=== PATIENT | male | born 1935 | race Caucasian/White ===

== ENCOUNTER 2016-07-24 06:45 | Inpatient (IN) | payer OTHER, MEDICARE ==
[~2016-07-24] VITALS: Ht 180.3 cm; Wt 83.6 kg
[2016-07-24] VITALS (9 sets, daily range): BP systolic 137–175; BP diastolic 63–79; PULSE 62–73; RESP 16–22; TEMP 97.2–98.1; O2SAT 22–100
[~2016-07-24 06:45] MED LIST: ALLO300 PO; ASPI81 PO; ATRO17AE INH; BUDE.25I NEB; CARV6.25 PO; CLON.3T TOP; CLOP75 PO; COZA100T PO; FISHOIL PO; HYDR-2768 PO; LEVO.05 PO; LORA-392 PO; NITR.3 SL; PERC10TA27 PO; SIMV20 PO; VENTAER INH
[2016-07-24] MEDS ORDERED: ALLO300T2 PO (07:06)
[2016-07-24] MEDS ORDERED: HYDR25TA5 PO (07:06)
[2016-07-24] MEDS ORDERED: LEVO.05 PO (07:06)
[2016-07-24] MEDS ORDERED: VENTAER INH (07:06)
[2016-07-24] MEDS ORDERED: ZOCO20TA PO (07:06)
[2016-07-24] MEDS ORDERED: LORA-373 PO (07:06)
[2016-07-24] MEDS ORDERED: PLAV75TA29 PO (07:06)
[2016-07-24] MEDS ORDERED: PERC5TAB12 PO (07:06)
[2016-07-24] MEDS ORDERED: LOSA100T PO (07:06)
[2016-07-24] MEDS ORDERED: CLON0.3D T-DERMAL (07:06)
[2016-07-24] MEDS ORDERED: IPRA17I INH (07:06)
[2016-07-24] MEDS ORDERED: NITR1SUB3 SL (07:06)
[2016-07-24] MEDS ORDERED: ASPI1TAB69 PO (07:06)
[2016-07-24] MEDS ORDERED: methylPREDNISolone SOD SUCC 125 MG/2 ML VIAL IVP ONE (07:15)
[2016-07-24] MEDS ORDERED: SODIUM CHLORIDE 0.9% FLUSH 5 ML FLUSH IVF PRN (07:15)
[2016-07-24 07:36] LABS: AUTOMATED NEUTROPHIL # 4.5 TH/MM3 (1.8-7.7); BASOPHIL % 0.4 % (0.0-2.0); EOSINOPHIL # 0.2 TH/MM3 (0-0.4); EOSINOPHIL % 3.2 % (0.0-4.0); HEMATOCRIT 37.1 % (39.0-51.0); HEMO FLAGS DIFF FINAL; LYMPH % 17.4 % (9.0-44.0); LYMPHOCYTE # 1.1 TH/MM3 (1.0-4.8); MEAN CELL VOLUME 99.2 FL (80.0-100.0); MEAN CORPUSCULAR HEMOGLOBIN 33.1 PG (27.0-34.0); MEAN CORPUSCULAR HGB CONC 33.3 % (32.0-36.0); MONO % 9.9 % (0.0-8.0); NEUT % 69.1 % (16.0-70.0); PLATELET COUNT 116 TH/MM3 (150-450); RED BLOOD COUNT 3.74 MIL/MM3 (4.50-5.90); RED CELL DISTRIBUTION WIDTH 14.7 % (11.6-17.2); WHITE BLOOD COUNT 6.6 TH/MM3 (4.0-11.0)
--- NOTE | 2016-07-24 07:43 | PD ---
HPI Chief Complaint: Respiratory Distress Time Seen by Provider: 07:14 Travel History International Travel<30 days: No Contact w/Intl Traveler<30days: No Traveled to known affect area: No History of Present Illness HPI 80-year-old male with history of prior smoking, COPD, bronchitis, CAD with CABG , pacer, presents to the ER today for 2 days history of intermittent chest pains which she states were fairly mild but pressure-like and worse with movements, dyspnea, shortness of breath, coughing up green phlegm. He states that he thought it was bronchitis but he did not come in until today. He denies any fevers, vomiting, abdominal pains, or any other symptoms. He states that his current chest pain is about a 3 out of 10, constant. Modifying Factors: None Associated Signs & Symptoms: Chest discomfort, coughing, dyspnea on exertion Risk Factors: Elderly, CABG, COPD PFSH Past Medical History Hx Anticoagulant Therapy: Yes (plavis, asa) Arthritis: Yes Asthma: Yes Autoimmune Disease: No Blood Disorders: No Anxiety: No Depression: No Heart Rhythm Problems: Yes Cancer: Yes (PROSTATE CANCER) Cardiac Catheterization: Yes Cardiovascular Problems: Yes High Cholesterol: Yes Chemotherapy: No Chest Pain: Yes Congestive Heart Failure: No COPD: Yes Cerebrovascular Accident: Yes Diabetes: No Diminished Hearing: No Gastrointestinal Disorders: Yes GERD: Yes Genitourinary: Yes Headaches: Yes Hypertension: Yes Immune Disorder: No Musculoskeletal: Yes Neurologic: Yes Psychiatric: No Reproductive: No Respiratory: Yes Myocardial Infarction: Yes Radiation Therapy: Yes Sickle Cell Disease: No Thyroid Disease: Yes Past Surgical History Abdominal Surgery: No AICD: No Arteriovenous Shunt: No Cardiac Surgery: Yes (PACEMAKER) Coronary Stent: Yes (X5) Ear Surgery: No Endocrine Surgery: No Eye Surgery: No Genitourinary Surgery: Yes (RENAL STENTS, and groin) Gynecologic Surgery: No Insulin Pump: No Neurologic Surgery: No Oral Surgery: No Pacemaker: Yes (BOSToN SCIENTIFIC) Thoracic Surgery: No Other Surgery: Yes (HEMMROIDECTOMY, LEFT GREAT TOE 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) Social History Alcohol Use: No Tobacco Use: No Substance Use: No Allergies-Medications (Allergen,Severity, Reaction): Coded Allergies: Fosamax (Verified Allergy, Severe, difficulty breathing, 07/24/16) Penicillin (Verified Allergy, Severe, HIVES, 07/24/16) Uncoded Allergies: PURPLE DYE (Adverse Reaction, Severe, HIVES, 03/26/09) Reported Meds & Prescriptions Reported Meds & Active Scripts Active Reported Atrovent HFA 12.9 GM Inh (Ipratropium Alexis) 17 Mcg/Act Aer 2 Puff INH Q6HR PRN Ventolin Hfa 18 GM Inh (Albuterol Sulfate) 90 Mcg/Act Aer 2 Puff INH Q4-6H PRN Percocet (Oxycodone-Acetaminophen) 5-325 mg Tab 2 Tab PO Q6H PRN Nitroglycerin SL (Nitroglycerin) 0.4 Mg Subl 0.4 Mg SL DIRECTED PRN ONE TABLET UNDER THE TONGUE NEEDED FOR CHEST PAIN, MAY REPEAT EVERY FIVE MINUTES FOR A TOTAL OF 3 DOSES OR CALL 911 IF NO RELIEF Synthroid (Levothyroxine Sodium) 50 Mcg Tab 50 Mcg PO DAILY Lorazepam 0.5 Mg Tab 0.5 Mg PO Q6H PRN Losartan (Losartan Potassium) 100 Mg Tab 75 Mg PO BID Plavix (Clopidogrel Bisulfate) 75 Mg Tab 75 Mg PO DAILY Hydrochlorothiazide 25 Mg Tab 25 Mg PO DAILY Clonidine 168 HR Patch (Clonidine HCl) 0.3 Mg/24 Hr Patch 1 Patch T-DERMAL Q7D Allopurinol 300 Mg Tab 150 Mg PO DAILY Aspirin 81 Mg Tabdr 81 Mg PO HS Zocor (Simvastatin) 20 Mg Tab 20 Mg PO HS Review of Systems Except as stated in HPI: all other systems reviewed are Neg Physical Exam Narrative GENERAL: Well-developed elderly white male patient in mild respiratory distress with talking full sentences. Awake, alert, oriented 3. SKIN: Warm and dry. HEAD: Atraumatic. Normocephalic. EYES: Pupils equal and round. No scleral icterus. No injection or drainage. ENT: No nasal bleeding or discharge. Mucous membranes pink and moist. NECK: Trachea midline. No JVD. CARDIOVASCULAR: Regular rate and rhythm. No murmur appreciated. RESPIRATORY: No accessory muscle use. Breath sounds equal and decreased throughout bilaterally. No wheezes, or crackles. GASTROINTESTINAL: Abdomen soft, non-tender, nondistended. Hepatic and splenic margins not palpable. MUSCULOSKELETAL: No obvious deformities. No clubbing. No cyanosis. No edema. NEUROLOGICAL: Awake and alert. No obvious cranial nerve deficits. Motor grossly within normal limits. Normal speech. PSYCHIATRIC: Appropriate mood and affect; insight and judgment normal. Data Data Last Documented VS Vital Signs Date Time Temp Pulse Resp B/P Pulse Ox O2 Delivery O2 Flow Rate FiO2 07/24/16 07:57 96 Nasal Cannula 2.00 07/24/16 06:53 69 22 07/24/16 06:48 97.8 163/74 Orders Electrocardiogram (07/24/16 ) Complete Blood Count With Diff (07/24/16 07:14) Comprehensive Metabolic Panel (07/24/16 07:14) B-Type Natriuretic Peptide (07/24/16 07:14) Ckmb (Isoenzyme) Profile (07/24/16 07:14) Troponin I (07/24/16 07:14) Influenzae A/B Antigen (07/24/16 07:14) Blood Culture (07/24/16 07:14) Iv Access Insert/Monitor (07/24/16 07:14) Ecg Monitoring (07/24/16 07:14) Oximetry (07/24/16 07:14) Oxygen Administration (07/24/16 07:14) Chest, Single Ap (07/24/16 07:14) Sodium Chloride 0.9% Flush (Ns Flush) (07/24/16 07:15) Methylprednisolone So Succ Inj (Solumedr (07/24/16 07:15) Albuterol-Ipratropium Neb (Duoneb Neb) (07/24/16 07:15) CKMB (07/24/16 06:50) CKMB% (07/24/16 06:50) Lactic Acid Sepsis Protocol (07/24/16 08:05) Ceftriaxone Inj (Rocephin Inj) (07/24/16 08:05) Azithromycin Inj (Zithromax Inj) (07/24/16 08:05) Labs Laboratory Tests Test 07/24/16 06:50 White Blood Count 6.6 TH/MM3 Red Blood Count 3.74 MIL/MM3 Hemoglobin 12.4 GM/DL Hematocrit 37.1 % Mean Corpuscular Volume 99.2 FL Mean Corpuscular Hemoglobin 33.1 PG Mean Corpuscular Hemoglobin 33.3 % Concent Red Cell Distribution Width 14.7 % Platelet Count 116 TH/MM3 Mean Platelet Volume 9.2 FL Neutrophils (%) (Auto) 69.1 % Lymphocytes (%) (Auto) 17.4 % Monocytes (%) (Auto) 9.9 % Eosinophils (%) (Auto) 3.2 % Basophils (%) (Auto) 0.4 % Neutrophils # (Auto) 4.5 TH/MM3 Lymphocytes # (Auto) 1.1 TH/MM3 Monocytes # (Auto) 0.6 TH/MM3 Eosinophils # (Auto) 0.2 TH/MM3 Basophils # (Auto) 0.0 TH/MM3 CBC Comment DIFF FINAL Differential Comment Sodium Level 141 MEQ/L Potassium Level 3.9 MEQ/L Chloride Level 106 MEQ/L Carbon Dioxide Level 24.7 MEQ/L Anion Gap 10 MEQ/L Blood Urea Nitrogen 15 MG/DL Creatinine 0.88 MG/DL Estimat Glomerular Filtration 83 ML/MIN Rate Random Glucose 116 MG/DL Calcium Level 8.6 MG/DL Total Bilirubin 1.0 MG/DL Aspartate Amino Transf 26 U/L (AST/SGOT) Alanine Aminotransferase 28 U/L (ALT/SGPT) Alkaline Phosphatase 147 U/L Total Creatine Kinase 279 U/L Creatine Kinase MB 2.8 NG/ML Troponin I 0.02 NG/ML B-Type Natriuretic Peptide 281 PG/ML Total Protein 7.3 GM/DL Albumin 3.6 GM/DL MDM Medical Decision Making Medical Screen Exam Complete: Yes Emergency Medical Condition: Yes Medical Record Reviewed: Yes Interpretation(s) EKG shows a paced rhythm at a rate of 70 bpm with no signs of acute ST changes. Laboratory Tests Test 07/24/16 06:50 Red Blood Count 3.74 MIL/MM3 (4.50-5.90) Hemoglobin 12.4 GM/DL (13.0-17.0) Hematocrit 37.1 % (39.0-51.0) Platelet Count 116 TH/MM3 (150-450) Monocytes (%) (Auto) 9.9 % (0.0-8.0) Estimat Glomerular Filtration 83 ML/MIN (>89) Rate Random Glucose 116 MG/DL (74-106) Alkaline Phosphatase 147 U/L (45-117) B-Type Natriuretic Peptide 281 PG/ML (0-100) Differential Diagnosis Coughing, intermittent chest discomfort, dyspneabronchitis versus COPD exacerbation versus CHF versus pneumonia versus dysrhythmias versus ACS Narrative Course Patient was initially given Solu-Medrol and nebulizers in the ER. Chest x-ray returns with basilar infiltrates worse on the right than the left concerning for underlying pneumonia. IV antibiotics were initiated after cultures are drawn. At this point, my plan would be to admit the patient for further treatment. Diagnosis Primary Impression: Pneumonia Admitting Information Admitting Physician Requests: it Carlos Navarrete MD Jul 24, 2016 07:43
[2016-07-24] MEDS: RESP: ALBUTEROL 2.5 MG/IPRATROPIUM 0.5 MG NEB (SCH) INH ×2 (07:53→07:54)
[2016-07-24 08:04] LABS: ALKALINE PHOSPHATASE 147 U/L (45-117); ALT (GPT) 28 U/L (12-78); ANION GAP 10 MEQ/L (5-15); AST (GOT) 26 U/L (15-37); BICARBONATE 24.7 MEQ/L (21.0-32.0); BLOOD UREA NITROGEN 15 MG/DL (7-18); CHLORIDE 106 MEQ/L (98-107); CREATINE KINASE 279 U/L (39-308); GLOMERULAR FILTRATION RATE 83 ML/MIN (>89); POTASSIUM 3.9 MEQ/L (3.5-5.1); SODIUM (NA) 141 MEQ/L (136-145)
[2016-07-24] MEDS ORDERED: cefTRIAXone INJ 2,000 MG in SODIUM CHLORIDE 0.9% INJ 100 ML IV STA (08:05)
[2016-07-24] MEDS ORDERED: AZITHROMYCIN INJ 500 MG in SODIUM CHLOR 0.9% 250 ML INJ 250 ML IV STA (08:05)
[2016-07-24 08:17] LABS: CKMB 2.8 NG/ML (0.5-3.6)
--- NOTE | 2016-07-24 08:32 | RADRPT ---
EXAM DATE/TIME: 07/24/2016 07:41 [facility] COMPARISON: CHEST SINGLE AP, July 22, 2015, 11:27. INDICATIONS : Short of breath. Chest pain. MEDICAL HISTORY : Chronic obstructive pulmonary disease. Cardiovascular disease. Carcinoma, prostatic. Hypertension . SURGICAL HISTORY : Pacemaker. Right hip repair. Cardiac cath. ENCOUNTER: Initial ACUITY: 2 days PAIN SCORE: 5/10 LOCATION: Bilateral chest FINDINGS: Bibasilar patchiness (right worse than left) is noted consistent with probable pneumonia. Clinical co rrelation is recommended. The heart is mildly enlarged. A right subclavian multi-lead pacemaker has its tips in the right atrium and right ventricle. No pneumothorax is noted. Surgical hardware is n oted within the cervical spine. CONCLUSION: 1. Bibasilar patchiness (right slightly worse than left) consistent with probable pneumonia. Clinic al correlation is recommended. 2. Cardiomegaly. Santos Clark MD on July 24, 2016 at 8:19 Board Certified Radiologist. This report was verified electronically.
[2016-07-24] MEDS ORDERED: SODIUM CHLORIDE 0.9% FLUSH 5 ML FLUSH FLUSH PRN (09:00)
[2016-07-24] MEDS ORDERED: NALOXONE HCL 0.4 MG/ML AMP IV PRN (09:00)
[2016-07-24] MEDS: ALLOPURINOL 300 MG TAB PO SCH (09:26)
[2016-07-24] MEDS: CLOPIDOGREL 75 MG TAB PO SCH (09:27)
[2016-07-24] MEDS: HYDROCHLOROTHIAZIDE 25 MG TAB PO SCH (09:27)
[2016-07-24] MEDS: LOSARTAN 50 MG TAB PO SCH ×2 (09:27→22:18)
[2016-07-24] MEDS: SODIUM CHLORIDE 0.9% FLUSH 5 ML FLUSH FLUSH SCH ×2 (09:28→22:19)
[2016-07-24] MEDS ORDERED: PILL SPLITTER OTHER PRN (09:30)
[2016-07-24] MEDS ORDERED: cloNIDine HCL 0.3 MG/24 HR PATCH T-DERMAL SCH (10:00)
[2016-07-24] MEDS ORDERED: REMOVE OLD CATAPRES (CLONIDINE) PATCH T-DERMAL SCH (10:00)
[2016-07-24] MEDS: ENOXAPARIN SODIUM 40 MG/0.4 ML SYRINGE SQ SCH (10:26)
--- NOTE | 2016-07-24 10:48 | HHI.HP ---
[facility] Admission Diagnosis pneumonia Diagnoses: Chief Complaint: SOB and chest pain Travel History International Travel<30 Days: No Contact w/Intl Traveler <30 Da: No Traveled to Known Affected Are: No History of Present Illness This is a 80-year-old male past medical history of coronary disease, OH, CVA who presented with shortness of breathing and chest pain. Patient stated that a few days ago he had shortness of breathing that occurred at rest. He stated that he checks his blood pressure in the systolic blood pressures in the 200s so he was concerned. With the shortness of breathing he stated that he had chest pain that was described as sharp: Across his chest and worsening with shortness of breathing. Patient stated that he took nitroglycerin which drastically helped his blood pressure but did not see any relief in terms of his chest pain. Patient stated after our his chest pain resolved but it seemed to worsen or recur with his cough. Patient also has a dry cough. He also stated that he felt chills and sweaty yesterday. Patient did not any fevers. Patient also stated that this chest pain was different from his previous MIs. At the moment patient stated that his symptoms have improved. Review of Systems Constitutional: DENIES: Diaphoretic episodes, Fatigue, Fever, Weight gain, Weight loss, Chills, Dizziness, Change in appetite, Night Sweats Endocrine: DENIES: Heat/cold intolerance, Polydipsia, Polyuria, Polyphagia Eyes: DENIES: Blurred vision, Diplopia, Eye inflammation, Eye pain, Vision loss , Photosensitivity, Double Vision Ears, nose, mouth, throat: DENIES: Tinnitus, Hearing loss, Vertigo, Nasal discharge, Oral lesions, Throat pain, Hoarseness, Ear Pain, Running Nose, Epistaxis, Sinus Pain, Toothache, Odynophagia Respiratory: COMPLAINS OF: Cough, Shortness of breath, DENIES: Apneas, Snoring , Wheezing, Hemoptysis, Sputum production Cardiovascular: COMPLAINS OF: Chest pain, DENIES: Palpitations, Syncope, Dyspnea on Exertion, PND, Lower Extremity Edema, Orthopnea, Claudication Gastrointestinal: DENIES: Abdominal pain, Black stools, Bloody stools, Constipation, Diarrhea, Nausea, Vomiting, Difficulty Swallowing, Anorexia Genitourinary: DENIES: Sexual dysfunction, Urinary frequency, Urinary incontinence, Urgency, Hematuria, Dysuria, Nocturia, Penile Discharge, Testicular Pain, Testicular Swelling Musculoskeletal: DENIES: Joint pain, Muscle aches, Stiffness, Joint Swelling, Back pain, Neck pain Integumentary: DENIES: Abnormal pigmentation, Nail changes, Pruritus, Rash Hematologic/lymphatic: DENIES: Bruising, Lymphadenopathy Immunologic/allergic: DENIES: Eczema, Urticaria Neurologic: DENIES: Abnormal gait, Headache, Localized weakness, Paresthesias, Seizures, Speech Problems, Tremor, Poor Balance Psychiatric: DENIES: Anxiety, Confusion, Mood changes, Depression, Hallucinations, Agitation, Suicidal Ideation, Homicidal Ideation, Delusions Past Family Social History Past Medical History Coronary disease, history of OH, 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, chronic pain due to OA, COPD Past Surgical History Pacemaker placement, tonsillectomy, adenectomy, neck surgeries Reported Medications Reported Meds & Active Scripts Active Reported Atrovent HFA 12.9 GM Inh (Ipratropium Warren) 17 Mcg/Act Aer 2 Puff INH Q6HR PRN Ventolin Hfa 18 GM Inh (Albuterol Sulfate) 90 Mcg/Act Aer 2 Puff INH Q4-6H PRN Percocet (Oxycodone-Acetaminophen) 5-325 mg Tab 2 Tab PO Q6H PRN Nitroglycerin SL (Nitroglycerin) 0.4 Mg Subl 0.4 Mg SL DIRECTED PRN ONE TABLET UNDER THE TONGUE NEEDED FOR CHEST PAIN, MAY REPEAT EVERY FIVE MINUTES FOR A TOTAL OF 3 DOSES OR CALL 911 IF NO RELIEF Synthroid (Levothyroxine Sodium) 50 Mcg Tab 50 Mcg PO DAILY Lorazepam 0.5 Mg Tab 0.5 Mg PO Q6H PRN Losartan (Losartan Potassium) 100 Mg Tab 75 Mg PO BID Plavix (Clopidogrel Bisulfate) 75 Mg Tab 75 Mg PO DAILY Hydrochlorothiazide 25 Mg Tab 25 Mg PO DAILY Clonidine 168 HR Patch (Clonidine HCl) 0.3 Mg/24 Hr Patch 1 Patch T-DERMAL Q7D Allopurinol 300 Mg Tab 150 Mg PO DAILY Aspirin 81 Mg Tabdr 81 Mg PO HS Zocor (Simvastatin) 20 Mg Tab 20 Mg PO HS Allergies: Coded Allergies: Fosamax (Verified Allergy, Severe, difficulty breathing, 07/24/16) Penicillin (Verified Allergy, Severe, HIVES, 07/24/16) Uncoded Allergies: PURPLE DYE (Adverse Reaction, Severe, HIVES, 03/26/09) Active Ordered Medications Current Medications IV Flush (NS Flush) 2 ml UNSCH PRN IVF FLUSH AFTER USING IV ACCESS; Start 07/24 at 07:15; Stop 07/24/16 at 09:21; Status DC Methylprednisolone Sodium Succinate (SoluMEDROL INJ) 125 mg ONCE ONCE IVP Last administered on 07/24/16 07:30; Start 07/24/16 at 07:15; Stop 07/24/16 at 07:16; Status DC Albuterol/ Ipratropium 1 ampule 1 ampule Q15M INH Last administered on 07:54; Start 07/24/16 at 07:15; Stop 07/24/16 at 07:31; Status DC Ceftriaxone Sodium 2000 mg/ Sodium Chloride 100 ml @ 200 mls/hr ONCE STAT IV Last administered on 07/24/16 09:26; Start 07/24/16 at 08:05; Stop 07/24/16 at 08:34; Status DC Azithromycin/ Sodium Chloride (Zithromax Inj/ NS 250 ml Inj) 250 ml @ 250 mls/ hr ONCE STAT IV Last administered on 07/24/16 10:26; Start 07/24/16 at 08:05 ; Stop 07/24/16 at 09:04; Status DC Allopurinol (Zyloprim) 150 mg DAILY PO Last administered on 07/24/16 09:26; Start 07/24/16 at 09:00 Aspirin (Ecotrin Ec) 81 mg HS PO ; Start 07/24/16 at 21:00 Clonidine (Catapres-Tts 0.3 Mg Patch.7d) 1 patch Q7D T-DERMAL ; Start 07/24/16 at 10:00 Clopidogrel Bisulfate (Plavix) 75 mg DAILY PO Last administered on 07/24/16 09 :27; Start 07/24/16 at 09:00 Hydrochlorothiazide (Hydrodiuril) 25 mg DAILY PO Last administered on 09:27; Start 07/24/16 at 09:00 Levothyroxine Sodium (Synthroid) 50 mcg DAILY@0600 PO ; Start 07/25/16 at 06:00 Lorazepam (Ativan) 0.5 mg Q6H PRN PO ANXIETY; Start 07/24/16 at 09:00 Losartan Potassium (Cozaar) 75 mg BID PO Last administered on 07/24/16 09:27; Start 07/24/16 at 09:00 Oxycodone/ Acetaminophen (Percocet 5-325 Mg) 2 tab Q6H PRN PO PAIN; Start at 09:00 Pravastatin Sodium 40 mg 40 mg HS PO ; Start 07/24/16 at 21:00 Ceftriaxone Sodium 1000 mg/ Sodium Chloride 100 ml @ 200 mls/hr Q24H IV ; Start 07/25/16 at 09:00 Azithromycin/ Sodium Chloride (Zithromax Inj/ NS 250 ml Inj) 250 ml @ 250 mls/ hr Q24H IV ; Start 07/25/16 at 08:00 IV Flush (NS Flush) 2 ml UNSCH PRN FLUSH FLUSH AFTER USING IV ACCESS; Start at 09:00 IV Flush (NS Flush) 2 ml BID FLUSH Last administered on 07/24/16 09:28; Start 07/24/16 at 09:00 Enoxaparin Sodium (Lovenox Inj) 40 mg Q24H SQ Last administered on 07/24/16 10 :26; Start 07/24/16 at 10:00 Naloxone HCl (Narcan Inj) 0.4 mg UNSCH PRN IV SEE LABEL COMMENTS; Start at 09:00 Miscellaneous Information 1 Q7D T-DERMAL ; Start 07/24/16 at 10:00 Miscellaneous (Pill Splitter) 1 ea UNSCH PRN OTHER SEE LABEL COMMENTS; Start at 09:30 Family History noncontributory Social History 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 Deny alcohol illicit drug use. He stated that he smoked for 60+ years about 3 packs per day but stopped smoking in 2001. Physical Exam Vital Signs Vital Signs Date Time Temp Pulse Resp B/P Pulse Ox O2 Delivery O2 Flow Rate FiO2 07/24/16 09:32 98 Nasal Cannula 2 07/24/16 09:25 69 20 175/76 98 Nasal Cannula 2 07/24/16 07:57 96 Nasal Cannula 2.00 07/24/16 06:53 69 22 95 Room Air 07/24/16 06:48 97.8 69 22 163/74 95 Physical Exam GENERAL: This is a well-nourished, well-developed patient, in no apparent distress. SKIN: No rashes, ecchymoses or lesions. Cool and dry. HEAD: Atraumatic. Normocephalic. No temporal or scalp tenderness. EYES: Pupils equal round and reactive. Extraocular motions intact. No scleral icterus. No injection or drainage. ENT: Nose without bleeding, purulent drainage or septal hematoma. Throat without erythema, tonsillar hypertrophy or exudate. Uvula midline. Airway patent. NECK: Trachea midline. No JVD or lymphadenopathy. Supple, nontender, no meningeal signs. CARDIOVASCULAR: Regular rate and rhythm without murmurs, gallops, or rubs. Able to reproduce chest pain with palpation to chest. RESPIRATORY: Clear to auscultation. Breath sounds equal bilaterally. No wheezes , rales, or rhonchi. GASTROINTESTINAL: Abdomen soft, non-tender, nondistended. No hepato-splenomegaly , or palpable masses. No guarding. MUSCULOSKELETAL: Extremities without clubbing, cyanosis, or edema. No joint tenderness, effusion, or edema noted. No calf tenderness. Negative Homans sign bilaterally. NEUROLOGICAL: Awake and alert. Cranial nerves II through XII intact. Motor and sensory grossly within normal limits. Five out of 5 muscle strength in all muscle groups. Normal speech. Laboratory Laboratory Tests Test 07/24/16 07/24/16 06:50 08:08 White Blood Count 6.6 Red Blood Count 3.74 Hemoglobin 12.4 Hematocrit 37.1 Mean Corpuscular Volume 99.2 Mean Corpuscular Hemoglobin 33.1 Mean Corpuscular Hemoglobin 33.3 Concent Red Cell Distribution Width 14.7 Platelet Count 116 Mean Platelet Volume 9.2 Neutrophils (%) (Auto) 69.1 Lymphocytes (%) (Auto) 17.4 Monocytes (%) (Auto) 9.9 Eosinophils (%) (Auto) 3.2 Basophils (%) (Auto) 0.4 Neutrophils # (Auto) 4.5 Lymphocytes # (Auto) 1.1 Monocytes # (Auto) 0.6 Eosinophils # (Auto) 0.2 Basophils # (Auto) 0.0 CBC Comment DIFF FINAL Differential Comment Sodium Level 141 Potassium Level 3.9 Chloride Level 106 Carbon Dioxide Level 24.7 Anion Gap 10 Blood Urea Nitrogen 15 Creatinine 0.88 Estimat Glomerular Filtration 83 Rate Random Glucose 116 Calcium Level 8.6 Total Bilirubin 1.0 Aspartate Amino Transf 26 (AST/SGOT) Alanine Aminotransferase 28 (ALT/SGPT) Alkaline Phosphatase 147 Total Creatine Kinase 279 Creatine Kinase MB 2.8 Troponin I 0.02 B-Type Natriuretic Peptide 281 Total Protein 7.3 Albumin 3.6 Lactic Acid Level 1.5 Date/Time Procedure Status Source Growth 07/24/16 07:24 Influenza Types A,B Antigen ([facility]) - Final Complete Nasal Washing NEGATIVE FOR FLU A AND B ANTIGEN.... 07/24/16 07:15 Aerobic Blood Culture Received Blood Peripheral Pending 07/24/16 07:15 Anaerobic Blood Culture Received Blood Peripheral Pending Result Diagram: 07/24/16 0650 07/24/16 0650 Assessment and Plan Assessment and Plan Dyspnea -Chest x-ray showed bibasilar opacity suggesting pneumonia right greater than left. -Due to symptoms will treat empirically for community acquired pneumonia with Rocephin and azithromycin. -Continue to supplement with oxygen as needed. -Continue to monitor clinically. Community-acquired pneumonia -See treatment as above. Atypical chest pain -Most likely secondary to pleurisy versus costochondritis since chest pain is reproducible. -Will give a burst of prednisone. -First troponin is negative so we will get 2 more troponins every 6 hours. We' ll also monitor over telemetry. Uncontrolled blood pressure -Asymptomatic. -Maybe secondary to pain. Will resume home medication. Continue to monitor and adjust accordingly. Coronary artery disease/COPD/history of CVA with no residuals/chronic pain -Home medication resumed. DVT prophylaxis -Lovenox Code Status full Discussed Condition With patient Physician Certification 2 Midnight Certification Type: Admission for Inpatient Services Order for Inpatient Services The services are ordered in accordance with Medicare regulations or non- Medicare payer requirements, as applicable. In the case of services not specified as inpatient-only, they are appropriately provided as inpatient services in accordance with the 2-midnight benchmark. Estimated LOS (days): 2 2 days is the estimated time the patient will need to remain in the hospital, assuming treatment plan goals are met and no additional complications. Post-Hospital Plan: Alisa Longo MD Jul 24, 2016 10:48
[2016-07-24] MEDS: predniSONE 50 MG TAB PO SCH (12:24)
[2016-07-24] MEDS: oxyCODONE/ACETAMINOPHEN 5 MG/325 MG TAB PO PRN (12:28)
--- NOTE | 2016-07-24 14:24 | EKG ---
Date Performed: 07/24/2016 Time Performed: 06:53:01 PTAGE: 80 years EKG: ELECTRONIC VENTRICULAR PACEMAKER ABNORMAL RHYTHM ECG NO PREVIOUS TRACING DOCTOR: Hank Patiño Interpretating Date/Time 07/24/2016 14:24:09
[2016-07-24] MEDS: PRAVASTATIN SOD 40 MG TAB PO SCH (22:17)
[2016-07-24] MEDS: ASPIRIN EC 81 MG TABEC PO SCH (22:18)
[2016-07-24] MEDS: LORazepam 0.5 MG TAB PO PRN (22:32)
[2016-07-25] VITALS (10 sets, daily range): BP systolic 115–150; BP diastolic 55–67; PULSE 69–81; RESP 16–18; TEMP 97.4–98.4; O2SAT 94–96
[2016-07-25] MEDS: LEVOTHYROXINE SODIUM 50 MCG TAB PO SCH (05:22)
[2016-07-25 06:51] LABS: HEMATOCRIT 33.7 % (39.0-51.0); MEAN CELL VOLUME 97.6 FL (80.0-100.0); MEAN CORPUSCULAR HEMOGLOBIN 32.6 PG (27.0-34.0); MEAN CORPUSCULAR HGB CONC 33.4 % (32.0-36.0); PLATELET COUNT 104 TH/MM3 (150-450); RED BLOOD COUNT 3.46 MIL/MM3 (4.50-5.90); RED CELL DISTRIBUTION WIDTH 14.9 % (11.6-17.2); REVIEW FLAG FINAL; WHITE BLOOD COUNT 7.6 TH/MM3 (4.0-11.0)
[2016-07-25 07:22] LABS: BICARBONATE 25.4 MEQ/L (21.0-32.0); POTASSIUM 4.1 MEQ/L (3.5-5.1)
[2016-07-25] MEDS: AZITHROMYCIN INJ 500 MG in SODIUM CHLOR 0.9% 250 ML INJ 250 ML IV SCH (08:51)
[2016-07-25] MEDS: CLOPIDOGREL 75 MG TAB PO SCH (08:53)
[2016-07-25] MEDS: SODIUM CHLORIDE 0.9% FLUSH 5 ML FLUSH FLUSH SCH ×2 (08:53→22:46)
[2016-07-25] MEDS: HYDROCHLOROTHIAZIDE 25 MG TAB PO SCH (08:53)
[2016-07-25] MEDS: predniSONE 50 MG TAB PO SCH (08:53)
[2016-07-25] MEDS: ALLOPURINOL 300 MG TAB PO SCH (08:54)
[2016-07-25] MEDS: oxyCODONE/ACETAMINOPHEN 5 MG/325 MG TAB PO PRN (08:55)
[2016-07-25] MEDS: cefTRIAXone INJ 1,000 MG in SODIUM CHLORIDE 0.9% INJ 100 ML IV SCH (10:51)
[2016-07-25] MEDS: ENOXAPARIN SODIUM 40 MG/0.4 ML SYRINGE SQ SCH (10:53)
--- NOTE | 2016-07-25 10:53 | HHI.PR ---
Subjective Remarks f/u for pleuritic CP and dyspnea, patient stated breathing has improved and now he is coughing up mucus. he stated that he is constipated now and wants laxative. patient also stated he is walking down the hallway. patient stated no more chest pain since he was given the steroid. Objective Vitals Vital Signs Date Time Temp Pulse Resp B/P Pulse Ox O2 Delivery O2 Flow Rate FiO2 07/25/16 08:00 98.4 70 16 115/55 95 07/25/16 04:30 97.8 70 18 150/67 94 07/25/16 00:23 94 Nasal Cannula 2.00 07/25/16 00:00 97.4 70 18 145/67 96 07/24/16 20:30 69 07/24/16 20:00 98.1 70 18 144/63 94 07/24/16 16:00 97.9 73 16 137/79 93 07/24/16 12:20 62 07/24/16 12:00 97.2 70 16 152/73 96 07/24/16 11:00 69 16 148/65 100 Nasal Cannula 2 I/O 07/24/16 07/24/16 07/24/16 07/25/16 07/25/16 07/25/16 07:00 15:00 23:00 07:00 15:00 23:00 Intake Total 260 ml 480 ml 60 ml Balance 260 ml 480 ml 60 ml Intake Oral 260 ml 480 ml IV Total 60 ml # Voids 1 2 2 Result Diagram: 07/25/1662407/25/16 0625 Objective Remarks GENERAL: in NAD CARDIOVASCULAR: Regular rate and rhythm without murmurs, gallops, or rubs. no TTP when palpating chest. RESPIRATORY:+ rhonchi. No accessory muscle use. GASTROINTESTINAL: Abdomen soft, non-tender, nondistended. MUSCULOSKELETAL: No cyanosis, or edema. BACK: Nontender without obvious deformity. No CVA tenderness. Medications and IVs Current Medications IV Flush (NS Flush) 2 ml UNSCH PRN IVF FLUSH AFTER USING IV ACCESS; Start 07/24 at 07:15; Stop 07/24/16 at 09:21; Status DC Methylprednisolone Sodium Succinate (SoluMEDROL INJ) 125 mg ONCE ONCE IVP Last administered on 07/24/16t 07:30; Start 07/24/16 at 07:15; Stop 07/24/16 at 07:16; Status DC Albuterol/ Ipratropium 1 ampule 1 ampule Q15M INH Last administered on 07:54; Start 07/24/16 at 07:15; Stop 07/24/16 at 07:31; Status DC Ceftriaxone Sodium 2000 mg/ Sodium Chloride 100 ml @ 200 mls/hr ONCE STAT IV Last administered on 07/24/16 09:26; Start 07/24/16 at 08:05; Stop 07/24/16 at 08:34; Status DC Azithromycin/ Sodium Chloride (Zithromax Inj/ NS 250 ml Inj) 250 ml @ 250 mls/ hr ONCE STAT IV Last administered on 07/24/16 10:26; Start 07/24/16 at 08:05 ; Stop 07/24/16 at 09:04; Status DC Allopurinol (Zyloprim) 150 mg DAILY PO Last administered on 07/25/16 08:54; Start 07/24/16 at 09:00 Aspirin (Ecotrin Ec) 81 mg HS PO Last administered on 07/24/16 22:18; Start at 21:00 Clonidine (Catapres-Tts 0.3 Mg Patch.7d) 1 patch Q7D T-DERMAL ; Start 07/24/16 at 10:00 Clopidogrel Bisulfate (Plavix) 75 mg DAILY PO Last administered on 07/25/16 08 :53; Start 07/24/16 at 09:00 Hydrochlorothiazide (Hydrodiuril) 25 mg DAILY PO Last administered on 08:53; Start 07/24/16 at 09:00 Levothyroxine Sodium (Synthroid) 50 mcg DAILY@0600 PO Last administered on 07/25 05:22; Start 07/25/16 at 06:00 Lorazepam (Ativan) 0.5 mg Q6H PRN PO ANXIETY Last administered on 07/24/16 22: 32; Start 07/24/16 at 09:00 Losartan Potassium (Cozaar) 75 mg BID PO Last administered on 07/24/16 22:18; Start 07/24/16 at 09:00 Oxycodone/ Acetaminophen (Percocet 5-325 Mg) 2 tab Q6H PRN PO PAIN Last administered on 07/25/16 08:55; Start 07/24/16 at 09:00 Pravastatin Sodium 40 mg 40 mg HS PO Last administered on 07/24/16 22:17; Start 07/24/16 at 21:00 Ceftriaxone Sodium 1000 mg/ Sodium Chloride 100 ml @ 200 mls/hr Q24H IV ; Start 07/25/16 at 09:00 Azithromycin/ Sodium Chloride (Zithromax Inj/ NS 250 ml Inj) 250 ml @ 250 mls/ hr Q24H IV Last administered on 07/25/16 08:51; Start 07/25/16 at 08:00 IV Flush (NS Flush) 2 ml UNSCH PRN FLUSH FLUSH AFTER USING IV ACCESS; Start at 09:00 IV Flush (NS Flush) 2 ml BID FLUSH Last administered on 07/25/16 08:53; Start 07/24/16 at 09:00 Enoxaparin Sodium (Lovenox Inj) 40 mg Q24H SQ Last administered on 07/24/16 10 :26; Start 07/24/16 at 10:00 Naloxone HCl (Narcan Inj) 0.4 mg UNSCH PRN IV SEE LABEL COMMENTS; Start at 09:00 Miscellaneous Information 1 Q7D T-DERMAL ; Start 07/24/16 at 10:00 Miscellaneous (Pill Splitter) 1 ea UNSCH PRN OTHER SEE LABEL COMMENTS; Start at 09:30 Prednisone (Deltasone) 50 mg DAILY PO Last administered on 07/25/16 08:53; Start 07/24/16 at 11:00 A/P Assessment and Plan CAP -Chest x-ray showed bibasilar opacity suggesting pneumonia right greater than left. -improving on Rocephin and azithromycin so will continue with medication. -Continue to supplement with oxygen as needed. -Continue to monitor clinically. Atypical chest pain -Most likely secondary to pleurisy versus costochondritis since chest pain is reproducible. -resolved with prednisone. -troponins negative and no events on telemetry. Uncontrolled blood pressure -Asymptomatic. -Maybe secondary to pain. -IMPROVED. continue with home medication. Coronary artery disease/COPD/history of CVA with no residuals/chronic pain -Home medication resumed. DVT prophylaxis -Lovenox Discharge Planning patient clinically improving still requiring oxygen. Will continue with IV antibiotics and if continues to do well can be d/c tomorrow. Alisa Estrada MD Jul 25, 2016 10:53
[2016-07-25] MEDS ORDERED: POLYETHYLENE GLYCOL 17 GM PKG PO ONE (11:00)
[2016-07-25] MEDS: LOSARTAN 50 MG TAB PO SCH ×2 (14:51→22:44)
[2016-07-25] MEDS: PRAVASTATIN SOD 40 MG TAB PO SCH (22:44)
[2016-07-25] MEDS: ASPIRIN EC 81 MG TABEC PO SCH (22:46)
[2016-07-25] MEDS: LORazepam 0.5 MG TAB PO PRN (22:48)
[2016-07-26] VITALS (7 sets, daily range): BP systolic 142–161; BP diastolic 71–81; PULSE 70–76; RESP 18–20; TEMP 96.8–98.4; O2SAT 94–98
[2016-07-26] MEDS: LEVOTHYROXINE SODIUM 50 MCG TAB PO SCH (07:04)
[2016-07-26 07:31] LABS: HEMATOCRIT 35.5 % (39.0-51.0); MEAN CELL VOLUME 98.9 FL (80.0-100.0); MEAN CORPUSCULAR HEMOGLOBIN 32.4 PG (27.0-34.0); MEAN CORPUSCULAR HGB CONC 32.7 % (32.0-36.0); PLATELET COUNT 118 TH/MM3 (150-450); RED BLOOD COUNT 3.59 MIL/MM3 (4.50-5.90); REVIEW FLAG FINAL; WHITE BLOOD COUNT 6.2 TH/MM3 (4.0-11.0)
[2016-07-26 08:03] LABS: BICARBONATE 31.6 MEQ/L (21.0-32.0); POTASSIUM 4.4 MEQ/L (3.5-5.1)
[2016-07-26] MEDS: LOSARTAN 50 MG TAB PO SCH (08:40)
[2016-07-26] MEDS: ALLOPURINOL 300 MG TAB PO SCH (08:40)
[2016-07-26] MEDS: HYDROCHLOROTHIAZIDE 25 MG TAB PO SCH (08:41)
[2016-07-26] MEDS: CLOPIDOGREL 75 MG TAB PO SCH (08:41)
[2016-07-26] MEDS: predniSONE 50 MG TAB PO SCH (08:42)
[2016-07-26] MEDS: ENOXAPARIN SODIUM 40 MG/0.4 ML SYRINGE SQ SCH (08:42)
[2016-07-26] MEDS: cefTRIAXone INJ 1,000 MG in SODIUM CHLORIDE 0.9% INJ 100 ML IV SCH (08:43)
[2016-07-26] MEDS: AZITHROMYCIN INJ 500 MG in SODIUM CHLOR 0.9% 250 ML INJ 250 ML IV SCH (08:44)
[2016-07-26] MEDS: SODIUM CHLORIDE 0.9% FLUSH 5 ML FLUSH FLUSH SCH (09:00)
[2016-07-26] MEDS ORDERED: LEVA750T PO (09:42)
[2016-07-26] MEDS ORDERED: PRED50 PO (09:42)
--- NOTE | 2016-07-26 09:43 | HHI.DS ---
Discharge Summary Admission Date Jul 24, 2016 at 08:48 Discharge Date: Jul 26, 2016 Admitting Diagnosis pneumonia (1) Pneumonia ICD Code: J18.9 Diagnosis: Principal Procedures none Brief History - From Admission This is a 80-year-old male past medical history of coronary disease, GA, CVA who presented with shortness of breathing and chest pain. Patient stated that a few days ago he had shortness of breathing that occurred at rest. He stated that he checks his blood pressure in the systolic blood pressures in the 200s so he was concerned. With the shortness of breathing he stated that he had chest pain that was described as sharp: Across his chest and worsening with shortness of breathing. Patient stated that he took nitroglycerin which drastically helped his blood pressure but did not see any relief in terms of his chest pain. Patient stated after our his chest pain resolved but it seemed to worsen or recur with his cough. Patient also has a dry cough. He also stated that he felt chills and sweaty yesterday. Patient did not any fevers. Patient also stated that this chest pain was different from his previous MIs. At the moment patient stated that his symptoms have improved. CBC/BMP: 07/26/16 0706 07/26/16 0706 Significant Findings Laboratory Tests Test 07/24/16 07/24/16 07/25/16 07/26/16 06:50 19:09 06:25 07:06 Red Blood Count 3.74 MIL/MM3 3.46 MIL/MM3 3.59 MIL/MM3 (4.50-5.90) (4.50-5.90) (4.50-5.90) Hemoglobin 12.4 GM/DL 11.3 GM/DL 11.6 GM/DL (13.0-17.0) (13.0-17.0) (13.0-17.0) Hematocrit 37.1 % 33.7 % 35.5 % (39.0-51.0) (39.0-51.0) (39.0-51.0) Platelet Count 116 TH/MM3 104 TH/MM3 118 TH/MM3 (150-450) (150-450) (150-450) Monocytes (%) (Auto) 9.9 % (0.0-8.0) Estimat Glomerular Filtration 83 ML/MIN (>89) Rate Random Glucose 116 MG/DL 146 MG/DL (74-106) (74-106) Alkaline Phosphatase 147 U/L (45-117) B-Type Natriuretic Peptide 281 PG/ML (0-100) Troponin I LESS THAN 0.02 NG/ML (0.02-0.05) Blood Urea Nitrogen 20 MG/DL (7-18) 21 MG/DL (7-18) Imaging Last Impressions Chest X-Ray 07/24/16 0714 Signed Impressions: Service Date/Time: Sunday, July 24, 2016 07:41 - CONCLUSION: 1. Bibasilar patchiness (right slightly worse than left) consistent with probable pneumonia. Clinical correlation is recommended. 2. Cardiomegaly. Santos Clark MD PE at Discharge GENERAL: in NAD CARDIOVASCULAR: Regular rate and rhythm without murmurs, gallops, or rubs. no TTP when palpating chest. RESPIRATORY:CTA B/L. No accessory muscle use. GASTROINTESTINAL: Abdomen soft, non-tender, nondistended. MUSCULOSKELETAL: No cyanosis, or edema. BACK: Nontender without obvious deformity. No CVA tenderness. Pt update on day of discharge f/u for PNA patient stated breathing has improved drastically. denied cough. walking the hallways. he also stated ready to go home. Hospital Course CAP -Chest x-ray showed bibasilar opacity suggesting pneumonia right greater than left. was treated for CAP with Rocephin and azithromycin and improved -Continue to supplement with oxygen as needed and was able to wean off oxygen. -switch to levaquin on discharge. Atypical chest pain -Most likely secondary to pleurisy versus costochondritis since chest pain is reproducible. -resolved with prednisone. -troponins negative and no events on telemetry. Uncontrolled blood pressure -Asymptomatic. -Maybe secondary to pain. -IMPROVED. continue with home medication. Coronary artery disease/COPD/history of CVA with no residuals/chronic pain -Home medication resumed. Pt Condition on Discharge: Good Discharge Disposition: Discharge Home Discharge Time: <= 30 minutes Discharge Instructions DIET: Follow Instructions for: Heart Healthy Diet Activities you can perform: Regular-No Restrictions Follow up Referrals: PCP Follow-up - 1 Week New Medications: Levofloxacin (Levaquin) 750 Mg Tab 750 MG PO DAILY Infection Days 7 Ref 0 TAB Prednisone (Prednisone) 50 Mg Tab 50 MG PO DAILY Cough #3 Ref 0 TAB Continued Medications: Albuterol 18 GM Inh (Ventolin Hfa 18 GM Inh) 90 Mcg/Act Aer 2 PUFF INH Q4-6H PRN SHORTNESS OF BREATH #1 Ref 0 INHALER Allopurinol (Allopurinol) 300 Mg Tab 150 MG PO DAILY Gout #30 Ref 0 TAB Aspirin (Aspirin) 81 Mg Tabdr 81 MG PO HS TAB Clonidine 168 HR Patch (Clonidine 168 HR Patch) 0.3 Mg/24 Hr Patch 1 PATCH T-DERMAL Q7D Blood Pressure Management #4 Ref 0 PATCH Clopidogrel (Plavix) 75 Mg Tab 75 MG PO DAILY Blood Clot Prevention #30 Ref 0 TAB Hydrochlorothiazide (Hydrochlorothiazide) 25 Mg Tab 25 MG PO DAILY #30 Ref 0 TAB Ipratropium HFA 12.9 GM Inh (Atrovent HFA 12.9 GM Inh) 17 Mcg/Act Aer 2 PUFF INH Q6HR PRN SHORTNESS OF BREATH #1 Ref 0 INHALER Levothyroxine (Synthroid) 50 Mcg Tab 50 MCG PO DAILY Thyroid #30 Ref 0 TAB Lorazepam (Lorazepam) 0.5 Mg Tab 0.5 MG PO Q6H PRN ANXIETY Ref 0 TAB Losartan (Losartan) 100 Mg Tab 75 MG PO BID Blood Pressure Management #30 Ref 0 TAB Nitroglycerin SL (Nitroglycerin SL) 0.4 Mg Subl 0.4 MG SL DIRECTED ONE TABLET UNDER THE TONGUE NEEDED FOR CHEST PAIN, MAY REPEAT EVERY FIVE MINUTES FOR A TOTAL OF 3 DOSES OR CALL 911 IF NO RELIEF PRN CHEST PAIN #100 Ref 0 TAB.SL Oxycodone-Acetaminophen (Percocet) 5-325 mg Tab 2 TAB PO Q6H PRN PAIN Ref 0 TAB Simvastatin (Zocor) 20 Mg Tab 20 MG PO HS Cholesterol Management #30 Ref 0 TAB Alisa Estrada MD Jul 26, 2016 09:43
--- NOTE | 2016-07-26 09:43 | HHI.DCPOC ---
Discharge Care Plan Diagnosis: (1) Pneumonia Goals to Promote Your Health * To prevent worsening of your condition and complications * To maintain your health at the optimal level Directions to Meet Your Goals Take your medications as prescribed Follow your dietary instruction Follow activity as directed Keep your appointments as scheduled Take your immunizations and boosters as scheduled If your symptoms worsen call your PCP, if no PCP go to Urgent Care Center or Emergency Room Smoking is Dangerous to Your Health. Avoid second hand smoke Call the 24-hour hour crisis hotline for domestic abuse at Alisa Estrada MD Jul 26, 2016 09:43
[2016-07-26] MEDS: oxyCODONE/ACETAMINOPHEN 5 MG/325 MG TAB PO PRN (09:52)
== END 2016-07-26 14:23 | disposition home or self-care (01) | DRG 195 ==
LOC: NEPE 06:45 → NEDA 08:48 → HOCB 12:02
PROVIDERS: ADMIT Family Medicine; ATTEND Family Medicine
DX: J18.9 Pneumonia, unspecified organism (principal); J44.9 Chronic obstructive pulmonary disease, unspecified; I25.10 Atherosclerotic heart disease of native coronary artery without angina pectoris; M19.90 Unspecified osteoarthritis, unspecified site; J45.909 Unspecified asthma, uncomplicated; E78.00 Pure hypercholesterolemia, unspecified; K21.9 Gastro-esophageal reflux disease without esophagitis; I10 Essential (primary) hypertension; R07.89 Other chest pain; Z86.73 Personal history of transient ischemic attack (TIA), and cerebral infarction without residual deficits; I25.2 Old myocardial infarction; Z95.0 Presence of cardiac pacemaker; K59.00 Constipation, unspecified; Z88.0 Allergy status to penicillin; Z95.1 Presence of aortocoronary bypass graft; Z88.8 Allergy status to other drugs, medicaments and biological substances; Z91.048 Other nonmedicinal substance allergy status; Z85.46 Personal history of malignant neoplasm of prostate; Z87.891 Personal history of nicotine dependence
CPT/HCPCS: 71010; 80048; 80053; 82550; 82552; 83605; 83880; 84484; 85025; 85027; 87040; 87804; 93005; 94664; 96374; J0456; J0696; J1650; J2930; J7050; J7512

== ENCOUNTER 2018-04-28 09:12 | Observation (INO) ==
[2018-04-28] MEDS ORDERED: Aspirin 325 MG Tablet PO ONE (09:54)
--- NOTE | 2018-04-28 09:54 | ED ---
HPI General Chief Complaint: Chest Pain Stated Complaint: respiratory Time Seen by Provider: 04/28/18 09:36 Source: patient Mode of arrival: ambulatory Limitations: no limitations History of Present Illness HPI narrative: 82-year-old male states over the past couple days he has been having chest pain and shortness of breath over the past couple of days. He states Dr. 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 He states he has had stents to his extremities but he does not think he is ever had them to his heart. He does state he thinks he has history of heart failure. He states he took 3 nitroglycerin and those made him feel better. He states his last heart cath was a couple years ago he thinks. He states he feels worse when he moves around. He denies other modifying factors. He denies other concurrent complaints. Related Data Home Medications Medication Instructions Recorded Confirmed allopurinol 150 mg PO DAILY 04/28/18 04/28/18 clonidine 1 patch TRANSDERMAL QWEEK 04/28/18 04/28/18 clopidogrel [Plavix] 75 mg PO DAILY 04/28/18 04/28/18 hydrochlorothiazide 25 mg PO DAILY 04/28/18 04/28/18 levothyroxine [Synthroid] 50 mcg PO DAILY 04/28/18 04/28/18 lorazepam 0.5 mg PO BID 04/28/18 04/28/18 losartan 50 - 100 mg PO DAILY 04/28/18 04/28/18 oxycodone 5 mg PO Q4-6H PRN 04/28/18 04/28/18 rivaroxaban [Xarelto] 15 mg PO DAILY 04/28/18 04/28/18 Allergies Allergy/AdvReac Type Severity Reaction Status Date / Time alendronate sodium Allergy Severe difficulty Verified 04/28/18 09:56 breathing penicillin G Allergy Severe HIVES Verified 04/28/18 09:56 PURPLE DYE AdvReac Severe HIVES Uncoded 03/26/09 08:06 Review of Systems ROS: all other systems reviewed are negative PMFSH History History Provided By: Patient (chf, peripheral artery disease with stents, hypertension) Medical History Medical History Anxiety (Acute) Atrial fibrillation (Acute) Gout (Acute) HTN (hypertension) (Acute) Hypothyroid (Acute) Pacemaker (Acute) Presence of arterial stent (Acute) Surgical History Surgical History History of back surgery (Acute) Social History Social History Recent Travel in [facility] within the Last 8 Weeks: No Recent Out of Country Travel within the Last 8 Weeks: No Exam Narrative Exam Narrative: GENERAL: 82 y/o male in no apparent distress SKIN: Focused skin assessment warm/dry. HEAD: Atraumatic. Normocephalic. EYES: Pupils equal and round. No scleral icterus. No injection or drainage. ENT: No nasal bleeding or discharge. Mucous membranes pink and moist. NECK: Trachea midline. No JVD. CARDIOVASCULAR: Regular rate and rhythm. RESPIRATORY: No accessory muscle use. Clear to auscultation. Breath sounds equal bilaterally. GASTROINTESTINAL: Abdomen soft, non-tender, nondistended. MUSCULOSKELETAL: No obvious deformities. No clubbing. No cyanosis. NEUROLOGICAL: Awake and alert. moves all extremities. Normal speech. PSYCHIATRIC: Appropriate mood and affect; insight and judgment normal. Course Reevaluation(s) Reevaluation #1: patient updated, agrees to plan, requesting 1 of his home Percocet for his chronic back pain which was given Consultations Consultation #1: dr walker who is covering [facility] to admit to [facility] Initial Documented Vital Signs Temperature 97.8 F 04/28/18 09:23 Pulse Rate 70 04/28/18 09:23 Respiratory Rate 20 04/28/18 09:23 Blood Pressure 198/79 H 04/28/18 09:23 Pulse Oximetry 98 04/28/18 09:23 Last Documented Vital Signs Temperature 97.8 F 04/28/18 09:23 Pulse Rate 69 04/28/18 10:29 Respiratory Rate 18 04/28/18 10:29 Blood Pressure 177/78 H 04/28/18 10:29 Pulse Oximetry 97 04/28/18 10:29 Medical Decision Making [facility] Narrative Medical decision making narrative: will check labs, xr and dose with aspirin and nitro and reeval Medical Screen Exam Complete: Yes Emergency Medical Condition: Yes Differential Diagnosis Differential Diagnosis: anemia, renal failure, angina, chf Lab Data Lab results reviewed: Yes I reviewed the patient's lab results. Result diagrams: 04/28/18 09:50 04/28/18 09:50 Lab Results 04/28/18 04/28/18 04/28/18 Range/Units 09:50 09:50 09:50 WBC 7.3 (4.0-11.0) th/mm3 RBC 3.69 L (4.50-5.90) mil/mm3 Hgb 12.9 L (13.0-17.0) gm/dL Hct 37.6 L (39.0-51.0) % MCV 102.0 H (80.0-100.0) fL MCH 35.0 H (27.0-34.0) pg MCHC 34.3 (32.0-36.0) % RDW 14.4 (11.6-17.2) % Plt Count 116 L (150-450) th/mm3 MPV 8.6 (7.0-11.0) fL Neut % (Auto) 76.0 H (16.0-70.0) % Lymph % (Auto) 12.5 (9.0-44.0) % Franklin % (Auto) 9.0 H (0.0-8.0) % Eos % (Auto) 2.1 (0.0-4.0) % Baso % (Auto) 0.4 (0.0-2.0) % Neut # (Auto) 5.6 (1.8-7.7) th/mm3 Lymph # (Auto) 0.9 L (1.0-4.8) th/mm3 Franklin # (Auto) 0.7 (0.0-0.9) th/mm3 Eos # (Auto) 0.2 (0.0-0.4) th/mm3 Baso # (Auto) 0.0 (0.0-0.2) th/mm3 WBC Differential . Differential Comment Auto diff final PT (9.8-11.6) sec INR Ratio APTT (23.4-31.7) sec Sodium 141 (136-145) meq/L Potassium 3.7 (3.5-5.1) meq/L Chloride 106 (98-107) meq/L Carbon Dioxide 25.6 (21.0-32.0) meq/L Anion Gap 9 (5-15) meq/L BUN 15 (7-18) mg/dL Creatinine 0.87 (0.60-1.30) mg/dL Estimated GFR 84 L (>89) mL/min Random Glucose 167 H (74-106) mg/dL Calcium 8.8 (8.5-10.1) mg/dL Magnesium 1.8 (1.5-2.5) mg/dL Total Bilirubin 1.1 H (0.2-1.0) mg/dL AST 17 (15-37) U/L ALT 17 (12-78) U/L Alkaline Phosphatase 148 H (45-117) U/L Total Creatine Kinase 60 (39-308) U/L Troponin I Less than 0.02 L (0.02-0.05) ng/mL B-Natriuretic Peptide 223 H (0-100) pg/mL Total Protein 7.1 (6.4-8.2) g/dL Albumin 3.7 (3.4-5.0) g/dL 04/28/18 Range/Units 09:50 WBC (4.0-11.0) th/mm3 RBC (4.50-5.90) mil/mm3 Hgb (13.0-17.0) gm/dL Hct (39.0-51.0) % MCV (80.0-100.0) fL MCH (27.0-34.0) pg MCHC (32.0-36.0) % RDW (11.6-17.2) % Plt Count (150-450) th/mm3 MPV (7.0-11.0) fL Neut % (Auto) (16.0-70.0) % Lymph % (Auto) (9.0-44.0) % Franklin % (Auto) (0.0-8.0) % Eos % (Auto) (0.0-4.0) % Baso % (Auto) (0.0-2.0) % Neut # (Auto) (1.8-7.7) th/mm3 Lymph # (Auto) (1.0-4.8) th/mm3 Franklin # (Auto) (0.0-0.9) th/mm3 Eos # (Auto) (0.0-0.4) th/mm3 Baso # (Auto) (0.0-0.2) th/mm3 WBC Differential Differential Comment PT 13.3 H (9.8-11.6) sec INR 1.3 Ratio APTT 37.9 H (23.4-31.7) sec Sodium (136-145) meq/L Potassium (3.5-5.1) meq/L Chloride (98-107) meq/L Carbon Dioxide (21.0-32.0) meq/L Anion Gap (5-15) meq/L BUN (7-18) mg/dL Creatinine (0.60-1.30) mg/dL Estimated GFR (>89) mL/min Random Glucose (74-106) mg/dL Calcium (8.5-10.1) mg/dL Magnesium (1.5-2.5) mg/dL Total Bilirubin (0.2-1.0) mg/dL AST (15-37) U/L ALT (12-78) U/L Alkaline Phosphatase (45-117) U/L Total Creatine Kinase (39-308) U/L Troponin I (0.02-0.05) ng/mL B-Natriuretic Peptide (0-100) pg/mL Total Protein (6.4-8.2) g/dL Albumin (3.4-5.0) g/dL Imaging Data Attestation: I personally reviewed and interpreted this imaging study as follows : Radiologist's impression: Chest X-Ray 04/28/18 09:37 CONCLUSION: Bibasilar areas of mild consolidation or atelectasis. Some degree of underlying interstitial disease could've this appearance. Discharge Plan Discharge Disposition Patient Disposition: ED Admit(ED Internal Use Only) Discharge Order Discharge Orders: ED Use Only Admit Order (Routine); Ordered 04/28/18 Ordered By: Amaya Smalls Discharge Details Diagnosis: Chest pain Physicians Team ED Provider: Amaya Smalls Primary Care Provider: Arpan Sharp Rxs /Orders / Referrals /Forms Prescriptions: No Action hydrochlorothiazide 50 mg Tablet 25 mg PO DAILY RF: 0 clopidogrel [Plavix] 75 mg Tablet 75 mg PO DAILY RF: 0 lorazepam 0.5 mg Tablet 0.5 mg PO BID RF: 0 levothyroxine [Synthroid] 50 mcg Tablet 50 mcg PO DAILY RF: 0 allopurinol 300 mg Tablet 150 mg PO DAILY RF: 0 clonidine 0.3 mg/24 hr Patch Weekly 1 patch TRANSDERMAL QWEEK RF: 0 losartan 100 mg Tablet 50 - 100 mg PO DAILY RF: 0 oxycodone 5 mg Tablet 5 mg PO Q4-6H PRN (Reason: Back Pain) RF: 0 rivaroxaban [Xarelto] 15 mg Tablet 15 mg PO DAILY RF: 0 Discharge Instructions Patient Printed Instructions: Chest Pain (ED) Status ED Status: Admitted Observation Patient
[2018-04-28 10:15] LABS: Baso % (Auto) 0.4 % (0.0-2.0); Eos # (Auto) 0.2 th/mm3 (0.0-0.4); Eos % (Auto) 2.1 % (0.0-4.0); Hematocrit 37.6 % (39.0-51.0); Hemoglobin 12.9 gm/dL (13.0-17.0); Lymph # (Auto) 0.9 th/mm3 (1.0-4.8); Lymph % (Auto) 12.5 % (9.0-44.0); Mean Corpuscular HGB Conc 34.3 % (32.0-36.0); Mean Platelet Volume 8.6 fL (7.0-11.0); Mono # (Auto) 0.7 th/mm3 (0.0-0.9); Neut # (Auto) 5.6 th/mm3 (1.8-7.7); Platelet Count 116 th/mm3 (150-450); Red Blood Count 3.69 mil/mm3 (4.50-5.90); Red Cell Distribution Width 14.4 % (11.6-17.2); White Blood Count 7.3 th/mm3 (4.0-11.0)
--- NOTE | 2018-04-28 10:18 | XR ---
EXAM DATE: 04/28/2018 10:15 AM EST AGE/SEX: 82 years / Male INDICATIONS: Chest tightness and short of breath. CLINICAL DATA: This is the patient's initial encounter. Patient reports that signs and symptoms have been present for 2 days and indicates a pain score of 2/10. MEDICAL/SURGICAL HISTORY: . Chronic obstructive pulmonary disease. Cardiovascular disease. Carc inoma, prostatic. Hypertension. SURGICAL HISTORY : Pacemaker. Right hip repair. Cardiac cath. . COMPARISON: [facility] [place], CHEST SINGLE AP, 07/24/2016. . FINDINGS: There is a multilead pacing device seen in the right chest. The heart size is upper limits of normal for size. This increased density at the bases bilaterally being more prominent the right. This also s ome minimal increased density in the right perihilar region. The costophrenic angles are grossly brian r. There is an anterior cervical fusion plate present. CONCLUSION: Bibasilar areas of mild consolidation or atelectasis. Some degree of underlying interstitial disease could've this appearance. Electronically signed by: Angel Patel MD Board Certified Radiologist 04/28/2018 10:17 AM EST
[2018-04-28 10:22] LABS: Activated Partial Thrombo Time 37.9 sec (23.4-31.7); INR 1.3 Ratio; Prothrombin Time 13.3 sec (9.8-11.6)
[2018-04-28 10:44] LABS: Albumin 3.7 g/dL (3.4-5.0); Anion Gap 9 meq/L (5-15); Aspartate Aminotransferase 17 U/L (15-37); Blood Urea Nitrogen 15 mg/dL (7-18); Calcium 8.8 mg/dL (8.5-10.1); Carbon Dioxide 25.6 meq/L (21.0-32.0); Chloride 106 meq/L (98-107); Glomerular Filtration Rate 84 mL/min (>89); Glucose,Random 167 mg/dL (74-106); Magnesium 1.8 mg/dL (1.5-2.5); Potassium 3.7 meq/L (3.5-5.1); Sodium 141 meq/L (136-145)
[2018-04-28 10:45] LABS: Alanine Aminotransferase 17 U/L (12-78)
[2018-04-28 10:49] LABS: Alkaline Phosphatase 148 U/L (45-117); Creatine Kinase 60 U/L (39-308); Total Protein 7.1 g/dL (6.4-8.2)
--- NOTE | 2018-04-28 12:23 | P.HPCA ---
History of Present Illness Primary Care Physician: Arpan Sharp MD Chief Complaint: Chest pain History of Present Illness: This is an 82-year-old male history of peripheral vascular disease with recent stent a few months ago of his right leg, hypertension,, paroxysmal atrial fibrillation that presents to ED with complaint of chest discomfort. 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 States that he had a heart catheterization about 3 months ago at a hospital in [place] where he resides most of the year and at which time he needed another stent to his right leg. Believes he had another cardiac catheterization as well and thinks he was told everything was normal but states he had so many of them he cannot guarantee that. He states her last 2 days he has had intermittent chest discomfort and shortness of breath. Worse was yesterday at which time it lasted a couple hours. Took a total of 3 still nitroglycerin which did eventually resolve the symptoms. He was short of breath with him as well but states he also has been short of breath without the chest discomfort and is found to be with activity primarily. He has had other episodes of the chest discomfort that were not as intense lasting just a few moments. He also states that he since that he was in atrial fibrillation yesterday as well as earlier this morning but believes he is in a normal rhythm at this time. He also states that he is ventricularly paced. Has appointment with Dr. Sharp May 13. Currently has no complaints. History of peripheral vascular disease. States he had recent stent of his right leg about 8 weeks ago and [place]. History of hypertension. Denies hyperlipidemia however he should be on statin with history of vascular disease. Denies diabetes and states that he has been told he has no blockages of his heart arteries from prior heart catheterizations. Denies family history of coronary disease but states that his father had several strokes. He quit smoking about 18 years ago prior to that he smoked 2-3 pack of series daily for 60 years. - Diagnosis (1) Chest pain (2) Peripheral vascular disease (3) Hypertension (4) Paroxysmal atrial fibrillation (5) Pacemaker Review of Systems General: Patient denies fevers, chills, and recent travel. HEENT: Patient denies headache, sore throat, difficulty swallowing. Cardiovascular: Has the chest discomfort as mentioned above. Had sensation of heart beating rapidly and irregularly last evening as well as earlier this morning. States he does not have that sensation at this time. No syncope. Denies diaphoresis. Respiratory: He was short of breath. Denies inspirational chest discomfort. Denies coughing wheezing or hemoptysis. GI: Patient denies nausea, vomiting, diarrhea, abdominal pain, bloody stools. Musculoskeletal: Patient denies joint pain or edema. Denies calf pain or edema. Neurovascular: Patient denies numbness, tingling, weakness in extremities. Denies headache. Endocrine: Denies polyuria and polydipsia. Hematologic: Denies easy bruising. Skin: Denies rash or itching. PMFSH - History History Provided By: Patient (chf, peripheral artery disease with stents, hypertension) - Medical History Medical History: Medical History (Last Updated 04/28/18 @ 09:58 by Estella Strong RN) Anxiety Atrial fibrillation Gout HTN (hypertension) Hypothyroid Pacemaker Presence of arterial stent - Surgical History Surgical History: Surgical History (Last Updated 04/28/18 @ 09:58 by Estella Strong RN) History of back surgery - Tobacco History Second Hand Smoke Exposure: No Tobacco Use In Past 30 Days: No Smoking Status: Former smoker Tobacco Type: Cigarettes - Alcohol History How Often Do You Have a Drink Containing Alcohol: Never - Substance Use History Substance History: No History of Abuse - Travel History Recent Travel in the [place] Within the Last 8 Weeks: No Recent Travel Out of the Country Within the Last 8 Weeks: No - Immunization History Tetanus Immunization: Unsure Medications and Allergies Active Medications: Active Medications Sodium Chloride (Ns Flush) 2 ml IV.FLUSH UNSCH PRN PRN Reason: FLUSH AFTER USING IV ACCESS Allergies Allergy/AdvReac Type Severity Reaction Status Date / Time alendronate sodium Allergy Severe difficulty Verified 04/28/18 09:56 breathing penicillin G Allergy Severe HIVES Verified 04/28/18 09:56 PURPLE DYE AdvReac Severe HIVES Uncoded 03/26/09 08:06 Home Medications Medication Instructions Recorded Confirmed Type allopurinol 150 mg PO DAILY 04/28/18 04/28/18 History clonidine 1 patch TRANSDERMAL QWEEK 04/28/18 04/28/18 History clopidogrel [Plavix] 75 mg PO DAILY 04/28/18 04/28/18 History hydrochlorothiazide 25 mg PO DAILY 04/28/18 04/28/18 History levothyroxine [Synthroid] 50 mcg PO DAILY 04/28/18 04/28/18 History lorazepam 0.5 mg PO BID 04/28/18 04/28/18 History losartan 50 - 100 mg PO DAILY 04/28/18 04/28/18 History oxycodone 5 mg PO Q4-6H PRN 04/28/18 04/28/18 History rivaroxaban [Xarelto] 15 mg PO DAILY 04/28/18 04/28/18 History Exam Vital signs: Vital Signs 04/28/18 09:23 04/28/18 10:29 Temperature 97.8 F Pulse Rate 70 69 Respiratory Rate 20 18 Blood Pressure 198/79 H 177/78 H Pulse Oximetry 98 97 Intake & Output 04/27/18 04/28/18 04/28/18 18:59 06:59 18:59 Weight 81.647 kg Narrative: GENERAL: This is a well-nourished, well-developed patient, in no apparent distress. Patient speaks in clear complete sentences. Patient is pleasant. HEENT: Head is atraumatic and normocephalic. Neck is supple without lymphadenopathy and trachea is midline. No JVD or carotid bruits. CARDIOVASCULAR: Regular rate and rhythm without murmurs, gallops, or rubs. RESPIRATORY: Clear to auscultation. Breath sounds equal bilaterally. No wheezes , rales, or rhonchi. Chest wall is nontender. No use of accessory muscles. GASTROINTESTINAL: Abdomen is nontender, nondistended. Abdomen soft. No obvious pulsatile mass or bruit. No CVA tenderness. Strong femoral pulses bilaterally. Normal bowel sounds in all quadrants. MUSCULOSKELETAL: Patient is moving upper and lower extremities freely. No calf tenderness or edema, no Homans sign. Strong pulses in upper and lower extremities. NEUROLOGICAL: Patient is alert and oriented. Cranial nerves 2-12 are grossly intact. No focal deficits and speech is clear. SKIN: No rash and turgor is normal. Results 04/28/18 09:50 04/28/18 09:50 Cardiac Enzymes 04/28/18 04/28/18 Range/Units 09:50 09:50 AST 17 (15-37) U/L Troponin I Less than 0.02 L (0.02-0.05) ng/mL B-Natriuretic Peptide 223 H (0-100) pg/mL Coagulation 04/28/18 04/28/18 Range/Units 09:50 09:50 PT 13.3 H (9.8-11.6) sec APTT 37.9 H (23.4-31.7) sec B-Natriuretic Peptide 223 H (0-100) pg/mL CBC 04/28/18 Range/Units 09:50 WBC 7.3 (4.0-11.0) th/mm3 RBC 3.69 L (4.50-5.90) mil/mm3 Hgb 12.9 L (13.0-17.0) gm/dL Hct 37.6 L (39.0-51.0) % Plt Count 116 L (150-450) th/mm3 Neut # (Auto) 5.6 (1.8-7.7) th/mm3 Lymph # (Auto) 0.9 L (1.0-4.8) th/mm3 [place] # (Auto) 0.7 (0.0-0.9) th/mm3 Eos # (Auto) 0.2 (0.0-0.4) th/mm3 Baso # (Auto) 0.0 (0.0-0.2) th/mm3 Comprehensive Metabolic Panel 04/28/18 Range/Units 09:50 Sodium 141 (136-145) meq/L Potassium 3.7 (3.5-5.1) meq/L Chloride 106 (98-107) meq/L Carbon Dioxide 25.6 (21.0-32.0) meq/L BUN 15 (7-18) mg/dL Creatinine 0.87 (0.60-1.30) mg/dL Calcium 8.8 (8.5-10.1) mg/dL AST 17 (15-37) U/L ALT 17 (12-78) U/L Alkaline Phosphatase 148 H (45-117) U/L Total Protein 7.1 (6.4-8.2) g/dL Albumin 3.7 (3.4-5.0) g/dL Intake and Output 04/27/18 04/28/18 04/28/18 22:59 06:59 14:59 Other: Weight 81.647 kg Patient Weight 04/29/18 06:59 Weight 81.647 kg - Imaging and Cardiology Imaging: Impressions Chest X-Ray 04/28/18 09:37 CONCLUSION: Bibasilar areas of mild consolidation or atelectasis. Some degree of underlying interstitial disease could've this appearance. EKG interpretations - MS, pacemaker, normal Pacemaker: ventricular pacing w/capture (except when refractory) (He is ventricularly paced.) Caprini VTE Risk Assessment Caprini VTE Risk Assessment: Moderate/High Risk (score >= 2) Caprini Risk Assessment Model: Point Value = 1 Point Value = 2 Point Value = 3 Point Value = 5 Age 41-60 Minor surgery BMI > 25 kg/m2 Swollen legs Varicose veins or History of unexplained or recurrent spontaneous Oral contraceptives or hormone replacement Sepsis (< 1 month) Serious lung disease, including pneumonia (< 1 month) Abnormal pulmonary function Acute myocardial infarction Congestive heart failure (< 1 month) History of inflammatory bowel disease Medical patient at bed rest Age 61-74 Arthroscopic surgery Major open surgery (> 45 min) Laparoscopic surgery (> 45 min) Malignancy Confined to bed (> 72 hours) Immobilizing plaster cast Central venous access Age >= 75 History of VTE Family history of VTE Factor V Leiden Prothrombin [id number] Lupus anticoagulant Anticardiolipin antibodies Elevated serum homocysteine Heparin-induced thrombocytopenia Other congenital or acquired thrombophilia Stroke (< 1 month) Elective arthroplasty Hip, pelvis, or leg fracture Acute spinal cord injury (< 1 month) Prophylaxis Regimen: Total Risk Factor Score Risk Level Prophylaxis Regimen 0-1 Low Early ambulation 2 Moderate Order ONE of the following: *Sequential Compression Device (SCD) *Heparin 5000 units SQ BID 3-4 Higher Order ONE of the following medications: *Heparin 5000 units SQ TID *Enoxaparin/Lovenox 40 mg SQ daily (WT < 150 kg, CrCl > 30 mL/min) *Enoxaparin/Lovenox 30 mg SQ daily (WT < 150 kg, CrCl > 10-29 mL/min) *Enoxaparin/Lovenox 30 mg SQ BID (WT < 150 kg, CrCl > 30 mL/min) AND/OR *Sequential Compression Device (SCD) 5 or more Highest Order ONE of the following medications: *Heparin 5000 units SQ TID (Preferred with Epidurals) *Enoxaparin/Lovenox 40 mg SQ daily (WT < 150 kg, CrCl > 30 mL/min) *Enoxaparin/Lovenox 30 mg SQ daily (WT < 150 kg, CrCl > 10-29 mL/min) *Enoxaparin/Lovenox 30 mg SQ BID (WT < 150 kg, CrCl > 30 mL/min) AND *Sequential Compression Device (SCD) Assessment and Plan - Assessment (1) Chest pain Code(s): R07.9 - Chest pain, unspecified Status: Acute (2) Peripheral vascular disease Code(s): I73.9 - Peripheral vascular disease, unspecified Status: Acute (3) Hypertension Code(s): I10 - Essential (primary) hypertension Status: Acute (4) Paroxysmal atrial fibrillation Code(s): I48.0 - Paroxysmal atrial fibrillation Status: Acute (5) Pacemaker Code(s): Z95.0 - Presence of cardiac pacemaker Status: Acute - Plan * Chest pain: Patient will have serial cardiac enzymes and EKGs for ruling out purposes. He will be seen by Dr. Lund of cardiology in the chest pain center. We are attempting to get records of recent intervention that he had in [place] about 8 weeks ago as he believes he had a heart catheterization and believes that he was told that his coronary arteries looked good. If this is confirmed, patient likely will be discharged with instructions to follow-up with his director maternal child after ruling out. * Peripheral vascular disease: Continue his medications. Also patient should be on a statin with history of peripheral vascular disease if he tolerates them. He should discuss this with his physician. * Hypertension: Continue medication. * Paroxysmal atrial relation: Continues medication and follow-up with his director maternal child. * Pacemaker: Patient is ventricularly paced. States he has an appointment with his director maternal child May 13 at which time is also scheduled to have his pacemaker checked. Patient is stable at this time. He is agreeable to this plan. (1) Chest pain Qualifiers: Chest pain type: unspecified Qualified Code(s): R07.9 - Chest pain, unspecified
[2018-04-28] MEDS ORDERED: LORazepam 0.5 MG Tablet PO PRN (12:27)
[2018-04-28] MEDS ORDERED: Acetaminophen 500 MG Tablet PO PRN (12:30)
[2018-04-28 13:51] LABS: Creatine Kinase 81 U/L (39-308)
[2018-04-28 16:55] LABS: Creatine Kinase 47 U/L (39-308)
[2018-04-28] MEDS ORDERED: Rivaroxaban 15 MG Tablet PO SCH (18:00)
[2018-04-29] MEDS ORDERED: Levothyroxine 50 MCG Tablet PO SCH (06:00)
[2018-04-29 06:51] VITALS: PULSE 69; RESP 18
--- NOTE | 2018-04-29 08:48 | ECG ---
Date Performed: 04/28/2018 Time Performed: 09:36:49 PTAGE: 82 years EKG: ELECTRONIC VENTRICULAR PACEMAKER ABNORMAL RHYTHM ECG PREVIOUS TRACING : 07/24/2016 06.53 Since previous tracing, no significant change noted DOCTOR: Vinicius Clifton Interpretating Date/Time 05/01/2018 06:38:29
--- NOTE | 2018-04-29 08:48 | ECG ---
Date Performed: 04/28/2018 Time Performed: 15:31:31 PTAGE: 82 years EKG: ELECTRONIC VENTRICULAR PACEMAKER ABNORMAL RHYTHM ECG PREVIOUS TRACING : 04/28/2018 12.55 Since previous tracing, no significant change noted DOCTOR: Vinicius Clifton Interpretating Date/Time 04/29/2018 08:46:58
--- NOTE | 2018-04-29 08:48 | ECG ---
Date Performed: 04/28/2018 Time Performed: 12:55:49 PTAGE: 82 years EKG: ELECTRONIC VENTRICULAR PACEMAKER ABNORMAL RHYTHM ECG PREVIOUS TRACING : 04/28/2018 09.36 Since previous tracing, no significant change noted DOCTOR: Vinicius Clifton Interpretating Date/Time 04/29/2018 08:47:11
[2018-04-29] MEDS ORDERED: Rivaroxaban 15 MG Tablet PO SCH (09:00)
[2018-04-29] MEDS ORDERED: hydroCHLOROthiazide 25 MG Tablet PO SCH (09:00)
--- NOTE | 2018-04-29 09:05 | P.PNCA ---
Subjective Interval history: Reports chest pain and headache "all night long, I didn't sleep at all." Currently denies chest pain, reports discomfort resolved 10 minutes prior. Medications and Allergies Active Medications: Active Medications Acetaminophen (Tylenol) 500 mg PO Q6H PRN PRN Reason: pain scale 1-5 Albuterol (Duoneb Neb (Prn)) 1 ampul NEB Q4HR NEB PRN PRN Reason: SHORTNESS OF BREATH/WHEEZING Last Admin: 04/29/18 06:47 Dose: 1 ampul Clonidine HCl (Catapress-Tts 0.3 Mg Patch.7d) 1 patch T-DERMAL Q7D [facility] Last Admin: 04/28/18 17:25 Dose: 1 patch Clopidogrel Bisulfate (Plavix) 75 mg PO DAILY [facility] Last Admin: 04/29/18 08:23 Dose: 75 mg Hydrochlorothiazide (Hydrodiuril) 25 mg PO DAILY [facility] Last Admin: 04/29/18 08:23 Dose: 25 mg Levothyroxine Sodium (Synthroid) 50 mcg PO DAILY@0600 [facility] Last Admin: 04/29/18 06:07 Dose: 50 mcg Lorazepam (Ativan) 0.5 mg PO BID PRN PRN Reason: ANXIETY Last Admin: 04/28/18 23:07 Dose: 0.5 mg Losartan Potassium (Cozaar) 50 mg PO DAILY [facility] Last Admin: 04/29/18 08:23 Dose: 50 mg Ondansetron HCl (Zofran Inj) 4 mg IV.PUSH Q6H PRN PRN Reason: NAUSEA Oxycodone HCl (Roxicodone) 5 mg PO Q4H PRN PRN Reason: PAIN SCALE 6 TO 10 Patch Removal (Remove Old Patch) 0 each T-DERMAL Q7D [facility] Last Admin: 04/28/18 17:27 Dose: 0.3 each Rivaroxaban (Xarelto) 15 mg PO Q24H [facility] Last Admin: 04/28/18 19:10 Dose: 15 mg Sodium Chloride (Ns Flush) 2 ml IV.FLUSH BID [facility] Last Admin: 04/28/18 23:04 Dose: 2 ml Sodium Chloride (Ns Flush) 2 ml IV.FLUSH PRN PRN PRN Reason: FLUSH AFTER USING IV ACCESS Allergies Allergy/AdvReac Type Severity Reaction Status Date / Time alendronate sodium Allergy Severe difficulty Verified 04/28/18 09:56 breathing penicillin G Allergy Severe HIVES Verified 04/28/18 09:56 PURPLE DYE AdvReac Severe HIVES Uncoded 03/26/09 08:06 Home Medications Medication Instructions Recorded Confirmed Type allopurinol 150 mg PO DAILY 04/28/18 04/28/18 History clonidine 1 patch TRANSDERMAL QWEEK 04/28/18 04/28/18 History clopidogrel [Plavix] 75 mg PO DAILY 04/28/18 04/28/18 History hydrochlorothiazide 25 mg PO DAILY 04/28/18 04/28/18 History levothyroxine [Synthroid] 50 mcg PO DAILY 04/28/18 04/28/18 History lorazepam 0.5 mg PO BID 04/28/18 04/28/18 History losartan 50 - 100 mg PO DAILY 04/28/18 04/28/18 History oxycodone 5 mg PO Q4-6H PRN 04/28/18 04/28/18 History rivaroxaban [Xarelto] 15 mg PO DAILY 04/28/18 04/28/18 History Physical Exam Vital signs: Vital Signs 04/28/18 09:23 04/28/18 10:29 04/28/18 15:26 Temperature 97.8 F 98.3 F Pulse Rate 70 69 70 Respiratory Rate 20 18 20 Blood Pressure 198/79 H 177/78 H 133/62 Pulse Oximetry 98 97 92 L 04/28/18 20:00 04/28/18 22:58 04/29/18 03:53 Temperature 98.1 F 98 F Pulse Rate 70 70 Respiratory Rate 22 18 Blood Pressure 181/81 H 170/73 H 195/84 H Pulse Oximetry 94 L 04/29/18 04:40 04/29/18 06:50 Temperature 98.1 F Pulse Rate 70 69 Respiratory Rate 20 18 Blood Pressure 174/79 H Pulse Oximetry 92 L Intake & Output 04/28/18 04/29/18 04/29/18 18:59 06:59 18:59 Weight 81.647 kg Other: # Voids 2 Narrative: elderly male easily awakens from sleep - Constitutional no acute distress - Routine HEENT Exam Head: Present: normocephalic, atraumatic - Routine Respiratory Exam Present: CTA bilaterally. Absent: wheezes, crackles - Routine Cardiovascular Exam Present: RRR. Absent: murmur, gallop, rubs Results 04/28/18 09:50 04/28/18 09:50 Cardiac Enzymes 04/28/18 04/28/18 04/28/18 Range/Units 09:50 09:50 12:45 AST 17 (15-37) U/L Troponin I Less than 0.02 L Less than 0.02 L (0.02-0.05) ng/mL B-Natriuretic Peptide 223 H (0-100) pg/mL 04/28/18 Range/Units 15:30 AST (15-37) U/L Troponin I Less than 0.02 L (0.02-0.05) ng/mL B-Natriuretic Peptide (0-100) pg/mL Coagulation 04/28/18 04/28/18 Range/Units 09:50 09:50 PT 13.3 H (9.8-11.6) sec APTT 37.9 H (23.4-31.7) sec B-Natriuretic Peptide 223 H (0-100) pg/mL CBC 04/28/18 Range/Units 09:50 WBC 7.3 (4.0-11.0) th/mm3 RBC 3.69 L (4.50-5.90) mil/mm3 Hgb 12.9 L (13.0-17.0) gm/dL Hct 37.6 L (39.0-51.0) % Plt Count 116 L (150-450) th/mm3 Neut # (Auto) 5.6 (1.8-7.7) th/mm3 Lymph # (Auto) 0.9 L (1.0-4.8) th/mm3 [place] # (Auto) 0.7 (0.0-0.9) th/mm3 Eos # (Auto) 0.2 (0.0-0.4) th/mm3 Baso # (Auto) 0.0 (0.0-0.2) th/mm3 Comprehensive Metabolic Panel 04/28/18 Range/Units 09:50 Sodium 141 (136-145) meq/L Potassium 3.7 (3.5-5.1) meq/L Chloride 106 (98-107) meq/L Carbon Dioxide 25.6 (21.0-32.0) meq/L BUN 15 (7-18) mg/dL Creatinine 0.87 (0.60-1.30) mg/dL Calcium 8.8 (8.5-10.1) mg/dL AST 17 (15-37) U/L ALT 17 (12-78) U/L Alkaline Phosphatase 148 H (45-117) U/L Total Protein 7.1 (6.4-8.2) g/dL Albumin 3.7 (3.4-5.0) g/dL Intake and Output 04/28/18 04/29/18 04/29/18 22:59 06:59 14:59 Other: # Voids 2 - Imaging and Cardiology Imaging: Impressions Chest X-Ray 04/28/18 09:37 CONCLUSION: Bibasilar areas of mild consolidation or atelectasis. Some degree of underlying interstitial disease could've this appearance. Assessment and Plan - Assessment (1) Chest pain Code(s): R07.9 - Chest pain, unspecified Status: Acute Plan: Admitted chest pain center. ACS ruled out 3 sets of EKGs and cardiac enzymes. Previously seen and evaluated by Dr. Osmel Lund. Records received from [place], [place] reviewed. Procedures completed included peripheral iliac and lower extremity arteriograms. No recent cardiac testing or catheterization. Proceed with Lexiscan as previously recommended chest pain center fruit washer. (2) Peripheral vascular disease Code(s): I73.9 - Peripheral vascular disease, unspecified Status: Chronic Plan: Plavix and Xalerto continued. Keep follow-up appointment with primary care provider. Discussed with primary care provider starting statin therapy. (3) Hypertension Code(s): I10 - Essential (primary) hypertension Status: Chronic Plan: Losartan, hydrochlorothiazide, and clonidine patch continued. (4) Paroxysmal atrial fibrillation Code(s): I48.0 - Paroxysmal atrial fibrillation Status: Chronic (5) Pacemaker Code(s): Z95.0 - Presence of cardiac pacemaker Status: Chronic Plan: Keep scheduled appointment with fruit washer. - Plan * Chest pain: Patient will have serial cardiac enzymes and EKGs for ruling out purposes. He will be seen by Dr. Lund of cardiology in the chest pain center. We are attempting to get records of recent intervention that he had in [place] about 8 weeks ago as he believes he had a heart catheterization and believes that he was told that his coronary arteries looked good. If this is confirmed, patient likely will be discharged with instructions to follow-up with his fruit washer after ruling out. * Peripheral vascular disease: Continue his medications. Also patient should be on a statin with history of peripheral vascular disease if he tolerates them. He should discuss this with his physician. * Hypertension: Continue medication. * Paroxysmal atrial relation: Continues medication and follow-up with his fruit washer. * Pacemaker: Patient is ventricularly paced. States he has an appointment with his fruit washer May 13 at which time is also scheduled to have his pacemaker checked. Patient is stable at this time. He is agreeable to this plan. (1) Chest pain Qualifiers: Chest pain type: unspecified Qualified Code(s): R07.9 - Chest pain, unspecified
[2018-04-29] MEDS ORDERED: Allopurinol 300 MG Tablet PO SCH (09:30)
[2018-04-29 09:36] VITALS: BP 192/82; TEMP 97.3; O2SAT 96
[2018-04-29] MEDS ORDERED: Regadenoson Inj 0.4 MG/5 ML Syringe IV.PUSH ONE (10:32)
--- NOTE | 2018-04-29 12:00 | NM ---
EXAM DATE: 04/29/2018 11:53 AM EST AGE/SEX: 82 years / Male INDICATIONS:Angina. Atrial fibrillation Chest pain. CLINICAL DATA: This is the patient's initial encounter. Patient reports that signs and symptoms have been present for 1 day and indicates a pain score of 3/10. MEDICAL/SURGICAL HISTORY: Hypertension. Hypothyroidism. Fusion, lumbar. Coronary artery stent . Pacemaker. COMPARISON: [facility], MYOCARDIAL PERF PHARM SPECT, 07/24/2015. C, CTA CAROTID ARTERIES W 3D RECON, 07/23/2015. . DOSE: 8.7 mCi Tc 99m Myoview at rest 25.9 mCi [id number] at stress 0.4 mg Lexiscan STRESS SYMPTOMS: Headache. EJECTION FRACTION: > 70 % TECHNIQUE: The patient underwent pharmacologic stress with infusion of prescribed dose. Continuous ECG tracing was monitored during stress. Gated SPECT imaging was performed after stress and conventi onal SPECT imaging was performed at rest. The examination was performed on a SPECT/CT scanner, both attenuation and non-corrected datasets were reviewed. FINDINGS: Distribution: The maximum perfused segment at stress is in the lateral wall. Perfusion Study: The pattern of perfusion at stress is within normal limits. Gated Study: There are intact wall motion and wall thickening without hypokinetic or dyskinetic segm ents. The ejection fraction is calculated at > 70%. RISK CATEGORY: Low (<1% Annual Motality Rate) CONCLUSION: 1. Negative examination. Electronically signed by: Santos Clark MD Board Certified Radiologist 04/29/2018 11:59 AM EST
--- NOTE | 2018-05-01 15:10 | TR ---
Date Performed: 04/29/2018 Time Performed: 10:39:19 DOCTOR: Vinicius Clifton DRUG LIST: CLINICAL HISTORY: REASON FOR TEST: REASON FOR ENDING: OBSERVATION: CONCLUSION: COMMENTS: Lexiscan stress test was performed under standard four minute protocol. Radionuclide was injected one minute prior to ending the test. Paced rhythm noted throughout test. Nuclear imagin g and interpretation are pending.
== END 2018-04-29 14:36 | disposition home or self-care (01) ==
LOC: NEDA 09:12 → NEPC 09:12 → NEPFCDU 14:06
CPT/HCPCS: 71010; 71045; 78452; 80053; 82550; 83520; 83735; 83880; 84484; 85025; 85610; 85730; 93005; 93017; 94640; 94665; 99285; A9502; G0378; J2785; Q9969